=== PATIENT | female | born 1935 | race Caucasian/White ===

== ENCOUNTER → 2017-06-16 | Outpatient (CLI) | payer BC ==
[~2017-06-16] MED LIST: ASCA500 PO; ASPEC81 PO; CLCC1250 PO; MULT-506 PO
== END | disposition home or self-care (01) ==
LOC: C.LABVPSUW 09:23
PROVIDERS: ATTEND Internal Medicine Critical Care Medicine
DX: E03.9 Hypothyroidism, unspecified (principal)